=== PATIENT | female | born 2000 | race Caucasian/White ===

== ENCOUNTER → 2020-12-31 | Outpatient (CLI) | payer OTHER ==
--- NOTE | 2020-12-31 18:34 | Diagnostic Imaging Report ---
PROCEDURE: US Non-ob pelvis comp/trans. TECHNIQUE: Multiple realtime grayscale images were obtained of the pelvis in various projections endovaginally. Transabdominal imaging was also performed. INDICATION: Secondary dysmenorrhea There are no prior studies available for comparison. The uterus is nongravid and not enlarged measuring 7.3 x 2.5 x 4.3 cm. The endometrial lining is not thickened measuring 4 mm. There is no focal mass involving the uterus to suggest a fibroid. Both ovaries were identified. There is a 3.4 x 2.0 x 3.1 cm cyst associated with the right ovary. This cyst has a generally benign appearance. The left ovary is unremarkable. There is good blood flow to each ovary and there is no sign of torsion. There is no pelvic mass or free fluid collection evident. IMPRESSION: 1. There is a benign-appearing 3.4 x 2.0 x 3.1 cm cyst associated with the right ovary. There is no acute pelvic abnormality noted otherwise. Dictated by: Dictated on workstation # [id number]
== END ==
LOC: RAD 15:03
PROVIDERS: ATTEND Obstetrics & Gynecology
DX: N83.201 Unspecified ovarian cyst, right side (principal)
CPT/HCPCS: 76830; 76856